=== PATIENT | male | born 1985 | race Caucasian/White ===

== ENCOUNTER → 2021-07-09 | Outpatient (CLI) | payer OTHER ==
--- NOTE | 2021-07-09 17:16 | CONS ---
CONSULTATION DATE OF SERVICE: 07/09/2021 35-year-old gentleman has been evaluated in Sleep Center for possible obstructive sleep apnea-hypopnea syndrome. HISTORY OF PRESENT ILLNESS SLEEP-WAKE EVALUATION: Patient has history of obstructive sleep apnea diagnosed with another institution 3 years ago. At that time, he was started on treatment with CPAP but was not able to use CPAP equipment. Since that time, he increased his weight on 40 pounds. SLEEP SCHEDULE: His sleep schedule at the present time from 10 p.m. to 5:15 am on weekdays and from 11 p.m. until 10 to 11 am on weekends. FALLING ASLEEP: No problems with falling asleep, although he has TV set in bedroom. DURING SLEEP: Usually sleeps on the side position with loud snoring, episodes of stopped breathing during sleep, gasping for air. He wakes up from sleep once with nocturia. DURING THE DAY/SLEEP WAKE EVALUATION: During the day, he may feel sleepiness. [place] Sleepiness Scale increased to 10. He takes one nap at 4 or 5:00 pm. He drinks 3 to 4 caffeinated beverages during the day. No history of hypnagogic hallucinations, sleep paralysis or cataplexy. PAST MEDICAL HISTORY: Positive for asthma, headaches. PAST SURGICAL HISTORY: None. MEDICATIONS: Advair 1 inhalation daily in the morning, albuterol as needed. SOCIAL HISTORY: Negative for smoking, alcohol consumption occasional. FAMILY HISTORY: Positive for sleep apnea by his father. Asthma by his mother, thrombocytopenic purpura by his father. REVIEW OF SYSTEMS: Loud snoring, awakenings from sleep, sleepiness during the day. PHYSICAL EXAMINATION: GENERAL: gentleman without distress. BP 125/78, HR 70, RR 16, height 5 feet 9 inches, weight 331, body mass index 48.8, temperature 98.6, oxygen saturation at room air 98%. Oropharynx: Extremely low position of soft palate, Mallampati 4. NECK is wide 19 inches in circumference. Neck: Supple, no JVD. Thyroid is not palpable. LUNGS: Clear to percussion and to auscultation. Good air exchange. No wheezing or rhonchi. HEART: S1, S2 regular. No murmurs, gallops, or rubs. ABDOMEN: Obese. Soft and nontender. Bowel sounds are present. No organomegaly appreciated. EXTREMITIES: No clubbing or cyanosis. INSPECTOR BALANCE WHEEL MOTION: Awake, alert, and oriented X3. Cranial nerves 2 to 7 intact. There is no fasciculation or atrophy. noted. No focal deficits observed. IMPRESSION: 1. Loud snoring, witnessed episodes of stopped breathing during sleep, awakenings from sleep with gasping for air and choking, history of obstructive sleep apnea in the past family low position of soft palate, Mallampati 4, wide neck, 19 inch in circumference, sleepiness [place] Sleepiness Scale is 10, obstructive sleep apnea- hypopnea syndrome, possibly in severe range. 2. Obesity, body mass index 48.8. 3. Asthma. 4. Episodes of headaches. PLAN: 1. Polysomnography for evaluation of patient's breathing during sleep. 2. CPAP/BiPAP titration if sleep study confirms obstructive sleep apnea-hypopnea syndrome. 3. Preferable position during sleep on the side. 4. No driving if patient feels any sleepiness. 5. I will see patient for follow up visit to explain results of testing and following plan. Thank you very much for referring this patient for consultation. Sincerely, Gurvinder Subramanian MD, PhD, FAASM Diplomat of [place] [employer] Sleep Medicine Board of [place] [employer] Lending Activities Supervisor of [facility] [place] MMODL / IJN: [id number] /
== END | disposition home or self-care (01) ==
LOC: SLEEP 14:31
PROVIDERS: ATTEND Internal Medicine
DX: Z53.9 Procedure and treatment not carried out, unspecified reason (principal)

== ENCOUNTER 2021-07-29 17:10 | Emergency (ER) | payer OTHER ==
[2021-07-29] MEDS ORDERED: ACETAMINOPHEN TAB 500 MG TAB PO STA (21:14)
[2021-07-29] MEDS ORDERED: SODIUM CHLORIDE 0.9% 50 ML IVPB ONE (21:45)
[2021-07-29] MEDS ORDERED: BAMLANIVIMAB (EUA) 700 MG, ETESEVIMAB (EUA) 1,400 MG in SODIUM CHLORIDE 0.9% 100 ML IVPB ONE (21:45)
--- NOTE | 2021-07-29 22:41 | ED ---
General Adult HPI - General Chief complaint: Upper Respiratory Infection Stated complaint: covid+, wants infusion Time Seen by Provider: 07/29/21 20:27 Source: patient, RN notes reviewed Mode of arrival: ambulatory Limitations: no limitations - History of Present Illness Initial comments: 36-year-old male presents to the emergency Department with complaints of fatigue, headache, and body aches. Patient states he had mild symptoms yesterday, but worsened today prompting him to obtain a home Covid test which was positive. Patient states he has not taken any OTC medications. No aggravating or alleviating factors. Patient is requesting the monoclonal antibody infusion. Denies chest pain, shortness of breath, difficulty breathing, abdominal pain, nausea, vomiting, diarrhea, or dysuria. - Related Data Allergies Allergy/AdvReac Type Severity Reaction Status Date / Time No Known Allergies Allergy Verified 07/29/21 18:23 Review of Systems ROS Statement: Those systems with pertinent positive or pertinent negative responses have been documented in the HPI. ROS Other: All systems not noted in ROS Statement are negative. Past Medical History Past Medical History: Asthma History of Any Multi-Drug Resistant Organisms: None Reported Past Surgical History: No Surgical Hx Reported Past Psychological History: No Psychological Hx Reported Smoking Status: Never smoker Past Alcohol Use History: Occasional Past Drug Use History: None Reported General Exam Limitations: no limitations (Well-developed, well-nourished male in no acute distress. Initial temperature 102.0, pulse 1:15, respirations 20, blood pressure 128/71, pulse ox 95% on room air.) General appearance: alert, in no apparent distress ENT exam: Present: normal exam, normal oropharynx, mucous membranes moist Respiratory exam: Present: normal lung sounds bilaterally. Absent: respiratory distress, wheezes, rales, rhonchi, stridor, chest wall tenderness Cardiovascular Exam: Present: regular rate, normal rhythm, normal heart sounds. Absent: systolic murmur, diastolic murmur, rubs, gallop, clicks GI/Abdominal exam: Present: soft, normal bowel sounds. Absent: distended, tenderness, guarding, rebound, rigid Neurological exam: Present: alert, oriented X3, CN II-XII intact Psychiatric exam: Present: normal affect, normal mood Skin exam: Present: warm, dry, intact, normal color. Absent: rash Course Vital Signs 07/29/21 07/29/21 18:23 23:03 Temperature 102.0 F H 99.1 F Pulse Rate 115 H 88 Respiratory 20 18 Rate Blood Pressure 128/71 165/69 O2 Sat by Pulse 95 96 Oximetry Medical Decision Making - Medical Decision Making 36-year-old obese male presents to the emergency department for evaluation. Patient had a positive home Covid test today. Upon exam, patient is well- appearing and in no acute distress. He is febrile, though not tachycardic nor tachypneic. Room air saturation is 96% or greater. Denies chest pain or difficulty breathing. Given Tylenol for fever. Covid test was obtained and is positive. Patient is a candidate for the monoclonal antibody infusion due to his BMI. Risks and benefits were discussed and patient is agreeable. Tolerated infusion with no adverse reaction. Encouraged to treat fever and body aches by alternating Tylenol and Motrin. Instructed to quarantine. Patient will be discharged home to follow-up with his PCP. Return parameters were discussed in detail. Patient verbalizes understanding and agrees with this plan. This patient's care was discussed with my attending . - Lab Data Lab Results 07/29/21 Range/Units 18:29 Coronavirus (PCR) Detected A (Not Detectd) Disposition Clinical Impression: COVID-19 Disposition: HOME SELF-CARE Condition: Stable Instructions (If sedation given, give patient instructions): Coronavirus Disease 2019 (COVID-19) Additional Instructions: Rest. Increase fluids. May alternate Tylenol and Motrin as needed for fever or body aches. Take vitamin C, vitamin D, and zinc. You should quarantine for the next 5 days, or as long as symptoms persist. Return to the emergency department with any new, worsening, or concerning symptoms as discussed. Is patient prescribed a controlled substance at d/c from ED?: No Referrals: Germán العراقي MD [Primary Care Provider] - 1-2 days Time of Disposition: 23:40
[2021-07-29 23:04] VITALS: BP 165/69; PULSE 88; RESP 18; TEMP 99.1
== END 2021-07-29 23:31 | disposition home or self-care (01) ==
LOC: EC 17:10
DX: U07.1 COVID-19 (principal); J45.909 Unspecified asthma, uncomplicated; E66.9 Obesity, unspecified; Z68.42 Body mass index [BMI] 45.0-49.9, adult
CPT/HCPCS: 99284; 87635; J3490

== ENCOUNTER → 2021-10-29 | Outpatient (CLI) | payer OTHER ==
--- NOTE | 2021-10-29 17:06 | SFUN ---
SLEEP CENTER FOLLOW UP NOTE DATE OF SERVICE: 10/29/2021 This 36-year-old gentleman has been followed in Sleep Center for treatment of obstructive sleep apnea-hypopnea syndrome. The patient had a polysomnogram which showed extremely severe obstructive sleep apnea- hypopnea syndrome, and then the patient had a CPAP titration, and his respiration was improved. I discussed the results of his sleep studies with the patient in detail. He received a CPAP unit and started to use it, was able to use it every night, and today is his first follow-up visit while he is on treatment with CPAP. The patient is able to use the equipment every night, and nights he is using it more than 4 hours, average 6 hours 10 minutes, which demonstrates good compliance. Maximal inspiratory pressure 21. Minimal expiratory pressure 12. Pressure support 4. Leak is quite high at 117.5 L/minute, but at the same time apnea-hypopnea index is only 1.3, which is absolutely perfect. [place] Sleepiness Scale today is 4, which is normal. MEDICATIONS: Advair, albuterol. PHYSICAL EXAMINATION: GENERAL: Pleasant patient in no distress. VITAL SIGNS: BP 139/79, HR 93, RR 16, weight 341.8 pounds, temperature 98.2, height 5 feet 9 inches. HEENT: PERRLA, EOMI, evaluation of oropharynx showed tongue protrudes midline. Extremely low position of soft palate; Mallampati IV. NECK: Supple, no JVD. Thyroid is not palpable. LUNGS: Clear to percussion and to auscultation. Good air exchange. No wheezing or rhonchi. HEART: S1, S2 regular. No murmurs, gallops, or rubs. ABDOMEN: Soft and nontender. Bowel sounds are present. No organomegaly appreciated. EXTREMITIES: No clubbing or cyanosis. DREDGE CAPTAIN: Awake, alert, and oriented X3. Cranial nerves 2 to 7 intact. There is no fasciculation or atrophy. noted. No focal deficits observed. IMPRESSION: 1. Extremely severe obstructive sleep apnea-hypopnea syndrome; apnea-hypopnea index 116 with oxygen desaturation extremely low at 34.6% of oxygen. The patient demonstrated great compliance with treatment, benefitting from treatment. Total normalization of respiration. Apnea-hypopnea index reduced to normal at 1.3. [place] Sleepiness Scale reduced from 10 to 4. High leak from the mask. 2. Obesity. 3. Asthma. 4. History of episodes of headaches in the past. No significant headaches after the patient was started on treatment with BiPAP. PLAN: 1. Patient will continue to use PAP equipment every night for the whole night. 2. Sleep hygiene with regular time in bed for at least 7-1/2 to 8 hours. 3. Precautions related to driving. No driving if feeling sleepiness. 4. I will maintain all necessary prescription for PAP supplies including mask, tube, filters. 5. Watching weight. 6. Follow-up visit in 6 months or earlier if patient has any problems. Thank you very much for allowing me to participate in the management of your patient. Sincerely, Gurvinder Subramanian MD, PhD, FAASM Diplomat of [place] [employer] Sleep Medicine Board of [place] [employer] Medicine Loan Review Manager of [facility] [place] AGUILAR / DERREK: [id number] /
== END | disposition home or self-care (01) ==
LOC: SLEEP 15:08
PROVIDERS: ATTEND Internal Medicine
DX: G47.33 Obstructive sleep apnea (adult) (pediatric) (principal); E66.9 Obesity, unspecified; J45.909 Unspecified asthma, uncomplicated

== ENCOUNTER → 2022-07-07 | Outpatient (CLI) | payer OTHER ==
--- NOTE | 2022-07-07 17:08 | P.PN ---
Subjective DATE: 07/07/2022 FOLLOW UP VISIT. Patient with obstructive sleep apnea hypopnea syndrome return to sleep center for follow-up visit. Information from previous visit have been reviewed. Patient is using BPAP equipment every night for the whole night, getting BPAP supplies in time. The patient does not have significant problems with the mask, BPAP unit and humidification. [place] sleepiness scale is 1, which is perfect. I checked information from BPAP unit. BPAP unit pressure maximal inspiratory pressure 21, minimal expiratory pressure 12, pressure-support 4, average pressure 16.3 / 12.3 cm H2O. Usage is 100 % for more then 4 hours, average 6.9 hours per night. Leak is 114 l/m, which is in very high range, possibly because patient has beer and using full face mask. Apnea Hypopnea Index is 0.8, which is perfect. MEDICATIONS:1. Advair twice a day 2. Ventolin as needed During physical exam: GENERAL: A pleasant patient without any distress. VITAL SIGNS: BP 128/83, HR 71, RR 18 , weight 335.2, temperature 98.1, oxygen saturation at room air 97 % . HEENT: PERRLA, EOMI.low position of soft palate, Mallapati 4 . NECK: Supple. No JVD. LUNGS: Clear to percussion and to auscultation. Good air exchange. No wheezing or rhonchi. HEART: S1, S2 regular. ABDOMEN: Soft and nontender. Obese EXTREMITIES: No clubbing or cyanosis. PRINTED CIRCUIT PHOTOGRAPHER: Awake, alert, and oriented x3. No focal deficit. Impressions: 1. Obstructive sleep apnea-hypopnea syndrome. Patient demonstrated great compliance with treatment, benefiting from treatment. 2. Obesity, patient lost 6 pounds since previous visit. 3. Asthma. 4. History of headaches in the past, presently while on BiPAP no headaches. Plan: 1. Continue using PAP equipment every night for the whole night. 2. To change air filter at least 1-2 times per month. 3. PAP unit should stay lower then position of the head. 4. Advised patient to remove all remaining water from humidifier canister daily and make it dry after each usage. Refill canister with fresh distilled water before each usage. 5. Sleep hygiene with regular time in bed for at least 8 hours. 6. Precautions related to driving. No driving if feel any sleepiness. 7. I will maintain prescription for PAP supplies including mask, tube, filters. 8. Follow up visit in 6 months or earlier if patient has any problems. 9. Watching and continue losing weight. Thank you very much for allowing me to participate in the management of your patient. Gurvinder Subramanian MD, PhD, FAASM. Diplomat of [place] [employer], Sleep Medicine Board by [place] [employer] Centrifugal Casting Machine Tender of [facility] [place]
== END ==
LOC: SLEEP 16:29
PROVIDERS: ATTEND Internal Medicine
DX: G47.33 Obstructive sleep apnea (adult) (pediatric) (principal); E66.9 Obesity, unspecified; J45.909 Unspecified asthma, uncomplicated; Z86.69 Personal history of other diseases of the nervous system and sense organs
CPT/HCPCS: 99212

== ENCOUNTER → 2023-01-12 | Outpatient (CLI) | payer OTHER ==
--- NOTE | 2023-01-12 16:55 | P.PN ---
Subjective DATE: 01/12/2023 FOLLOW UP VISIT. Patient with obstructive sleep apnea hypopnea syndrome return to sleep center for follow-up visit. Information from previous visit have been reviewed. Patient is using PAP equipment every night for the whole night, getting PAP supplies in time. The patient does not have significant problems with the mask, BPAP unit and humidification. [place] sleepiness scale is 2. I checked information from BPAP unit. BPAP unit pressure maximal inspiratory pressure 21, minimal expiratory pressure 12, average pressure 16/12 cm H2O. Usage is 100 % for more then 4 hours, average 7.4 hours per night. Leak is increased to 103 l/m, possibly because patient has wang. Apnea Hypopnea Index is 0.8, which is normal. MEDICATIONS:1. Albuterol 2. Advair During physical exam: GENERAL: A pleasant patient without any distress. VITAL SIGNS: BP 126/76, HR 79, RR 18 , weight 330.2, temperature 98.2, oxygen saturation at room air 93 % . HEENT: PERRLA, EOMI.low position of soft palate, Mallapati 4 . NECK: Supple. No JVD. LUNGS: Clear to percussion and to auscultation. Good air exchange. No wheezing or rhonchi. HEART: S1, S2 regular. ABDOMEN: Soft and nontender. Obese EXTREMITIES: No clubbing or cyanosis. IS MANAGER: Awake, alert, and oriented x3. No focal deficit. Impressions: 1. Obstructive sleep apnea-hypopnea syndrome. Patient demonstrated great compliance with treatment, benefiting from treatment. 2. Obesity, patient lost 5 pounds comparing to the previous visit. 3. Asthma. 4. History of headaches in the past, no headaches of the present time after sleep apnea was treated. Plan: 1. Continue using BPAP equipment every night for the whole night. 2. To change air filter at least 1-2 times per month. 3. PAP unit should stay lower then position of the head. 4. Advised patient to remove all remaining water from humidifier canister daily and make it dry after each usage. Refill canister with fresh distilled water before each usage. 5. Sleep hygiene with regular time in bed for at least 8 hours. 6. Precautions related to driving. No driving if feel any sleepiness. 7. I will maintain prescription for PAP supplies including mask, tube, filters. 8. Watching and losing weight. 9. Follow up visit in 6 months or earlier if patient has any problems. Thank you very much for allowing me to participate in the management of your patient. Gurvinder Subramanian MD, PhD, FAASM. Diplomat of [place] Board [employer] Sleep Medicine, Sleep Medicine Board by [place] Board [employer] Medicine Associate Loan Officer of [facility] [place]
== END ==
LOC: 3 N SLEEP 16:11
PROVIDERS: ATTEND Internal Medicine
DX: G47.33 Obstructive sleep apnea (adult) (pediatric) (principal); E66.9 Obesity, unspecified; J45.909 Unspecified asthma, uncomplicated; Z79.51 Long term (current) use of inhaled steroids; Z98.890 Other specified postprocedural states; Z99.89 Dependence on other enabling machines and devices
CPT/HCPCS: 99212

== ENCOUNTER → 2023-07-21 | Outpatient (CLI) | payer OTHER ==
--- NOTE | 2023-07-21 17:10 | P.PN ---
Subjective DATE: 07/21/2023 FOLLOW UP VISIT. Patient with obstructive sleep apnea hypopnea syndrome return to sleep center for follow-up visit. Information from previous visit have been reviewed. Patient is using BPAP equipment every night for the whole night, getting BPAP supplies in time. The patient does not have significant problems with the mask, BPAP unit and humidification. [place] sleepiness scale is 2, which is perfect. I checked information from PAP unit. BPAP unit pressure maximal inspiratory pressure 21, minimal expiratory pressure 12, pressure-support 4 cm H2O. Usage is 100 % for more then 4 hours, average 7 hours per night. Leak is significantly increased to 97.7 l/m, which is in acceptable range. Apnea Hypopnea Index is 1.4, which is normal. MEDICATIONS:1. Albuterol inhaler 2. Advair inhaler During physical exam: GENERAL: A pleasant patient without any distress. VITAL SIGNS: BP 130/62, HR 71, RR 12 , weight 340.8, temperature 98.4, oxygen saturation at room air 98 % . HEENT: PERRLA, EOMI.low position of soft palate, Mallapati 4 . NECK: Supple. No JVD. LUNGS: Clear to percussion and to auscultation. Good air exchange. No wheezing or rhonchi. HEART: S1, S2 regular. ABDOMEN: Soft and nontender. Obese EXTREMITIES: No clubbing or cyanosis. FINISHER WALLBOARD AND PLASTERBOARD: Awake, alert, and oriented x3. No focal deficit. Impressions: 1. Obstructive sleep apnea-hypopnea syndrome. Patient demonstrated great compliance with treatment, benefiting from treatment. 2. Obesity, BMI 50.3, patient increased his weight on 10 pounds comparing with previous visit. 3. Asthma. 4. History of headaches in the past. Plan: 1. Continue using PAP equipment every night for the whole night. 2. To change air filter at least 1-2 times per month. 3. PAP unit should stay lower then position of the head. 4. Advised patient to remove all remaining water from humidifier canister daily and make it dry after each usage. Refill canister with fresh distilled water before each usage. 5. Sleep hygiene with regular time in bed for at least 8 hours. 6. Precautions related to driving. No driving if feel any sleepiness. 7. I will maintain prescription for PAP supplies including mask, tube, filters. 8. Follow up visit in 6 months or earlier if patient has any problems. 9. Watching and losing weight. Thank you very much for allowing me to participate in the management of your patient. Gurvinder Subramanian MD, PhD, FAASM. Diplomat of [place] Board of Sleep Medicine, Sleep Medicine Board by [place] Board of Internal Medicine Clothespin Drier Operator of [facility] [place]
== END ==
LOC: 3 N SLEEP 16:10
PROVIDERS: ATTEND Internal Medicine
DX: G47.33 Obstructive sleep apnea (adult) (pediatric) (principal); E66.9 Obesity, unspecified; J45.909 Unspecified asthma, uncomplicated; Z86.69 Personal history of other diseases of the nervous system and sense organs; Z68.43 Body mass index [BMI] 50.0-59.9, adult; Z99.89 Dependence on other enabling machines and devices
CPT/HCPCS: 99212

== ENCOUNTER → 2024-07-13 | Outpatient (CLI) | payer MEDICAID ==
[2024-07-13 15:19] LABS: BUN/Creat Ratio 15.92 Ratio (12.00-20.00); Blood Urea Nitrogen 20.7 mg/dL (9.0-27.0); Calcium 9.8 mg/dL (8.7-10.3); Carbon Dioxide 24.5 mmol/L (21.6-31.8); Chloride 106 mmol/L (96-109); Glucose 84 mg/dL (70-110); Potassium 4.9 mmol/L (3.5-5.5); Sodium 141 mmol/L (135-145)
[2024-07-13 18:30] LABS: Basophils # (A) 0.04 X 10*3/uL (0.00-0.10); Basophils % (A) 0.5 %; Eosinophils # (A) 0.61 X 10*3/uL (0.04-0.35); Eosinophils % (A) 7.8 %; HCT 45.4 % (39.6-50.0); HGB 14.5 g/dL (13.0-17.0); Lymphocytes # (A) 1.65 X 10*3/uL (0.90-5.00); Lymphocytes % (A) 21.2 %; MCH 28.9 pg (27.0-32.0); MCHC 31.9 g/dL (32.0-37.0); MCV 90.6 FL (80.0-97.0); Mean Platelet Volume 12.8 FL (9.5-12.2); Monocytes # (A) 0.73 X 10*3/uL (0.20-1.00); Monocytes % (A) 9.4 %; NRBC Per 100 WBC 0 X 10*3/uL (0.00-0.01); Neutrophils # (A) 4.75 X 10*3/uL (1.80-7.70); Neutrophils % (A) 60.8 %; Platelet Count 217 X 10*3/uL (140-440); RBC 5.01 X 10*6/uL (4.40-5.60); RDW 13.1 % (11.5-14.5)
== END | disposition home or self-care (01) ==
LOC: LABWHC1 11:05
PROVIDERS: ATTEND Family Medicine
DX: E66.01 Morbid (severe) obesity due to excess calories (principal); K21.9 Gastro-esophageal reflux disease without esophagitis; K92.1 Melena; R79.89 Other specified abnormal findings of blood chemistry
CPT/HCPCS: 36415; 80048; 85025

== ENCOUNTER → 2024-08-16 | Outpatient (CLI) | payer MEDICAID ==
[2024-08-16 15:37] LABS: Basophils # (A) 0.03 X 10*3/uL (0.00-0.10); Basophils % (A) 0.4 %; Eosinophils % (A) 5.9 %; HCT 47.1 % (39.6-50.0); Lymphocytes # (A) 2.05 X 10*3/uL (0.90-5.00); MCH 28.4 pg (27.0-32.0); MCHC 31.8 g/dL (32.0-37.0); Mean Platelet Volume 12.3 FL (9.5-12.2); Monocytes # (A) 0.64 X 10*3/uL (0.20-1.00); Monocytes % (A) 9.4 %; NRBC Per 100 WBC 0 X 10*3/uL (0.00-0.01); Neutrophils % (A) 54.2 %; Platelet Count 234 X 10*3/uL (140-440); RBC 5.29 X 10*6/uL (4.40-5.60); RDW 12.6 % (11.5-14.5); WBC 6.83 X 10*3/uL (4.50-10.00)
== END | disposition home or self-care (01) ==
LOC: LABWHC1 09:53
PROVIDERS: ATTEND Family Medicine
DX: I10 Essential (primary) hypertension (principal); E66.01 Morbid (severe) obesity due to excess calories; J45.20 Mild intermittent asthma, uncomplicated; K92.1 Melena; Z68.42 Body mass index [BMI] 45.0-49.9, adult; K21.9 Gastro-esophageal reflux disease without esophagitis; R79.89 Other specified abnormal findings of blood chemistry
CPT/HCPCS: 36415; 82040; 84270; 84402; 84403; 85025

== ENCOUNTER → 2024-08-30 | Outpatient (CLI) | payer MEDICAID ==
--- NOTE | 2024-08-30 16:48 | NM ---
EXAMINATION TYPE: NM hepatobiliary w CCK DATE OF EXAM: 08/30/2024 COMPARISON: NONE CLINICAL INDICATION: Male, 39 years old with history of R10.13 Epigastric pain; TECHNIQUE: After the intravenous administration of 5.0 mCi Tc 99m Mebrofenin hepatobiliary scintigrap hy is performed. Immediate images post injection. FINDINGS: There is satisfactory initial accumulation of tracer by the liver. The gallbladder is visualized wit hin 12 minutes. The small bowel activity is noted within 6 minutes. At one hour CCK was administere d, patient was injected with 3.2 mcg of Kinevac, and gallbladder ejection fraction is calculated at 6 7 %, in the normal range. IMPRESSION: No scintigraphic evidence for acute/chronic cholecystitis or biliary dyskinesia. [facility] Doe, , 08/30/2024 4:45 PM
== END | disposition home or self-care (01) ==
LOC: RADNMMAIN 13:09
PROVIDERS: ATTEND Surgery
DX: R10.13 Epigastric pain (principal)
CPT/HCPCS: 78227; A9537; J2805

== ENCOUNTER → 2024-09-27 | Outpatient (CLI) | payer MEDICAID ==
--- NOTE | 2024-09-27 10:26 | FL ---
EXAMINATION TYPE: FL UGI w esophagus DATE OF EXAM: 09/27/2024 9:13 AM COMPARISON: None CLINICAL INDICATION:Male, 39 years old with history of GERD; TECHNIQUE: The procedure was explained and patient history elicited. All patient questions were ans wered prior to start of procedure. A office services assistant radiograph of the abdomen was also reviewed. Multiple flu oroscopic spot images of the esophagus, stomach and duodenum were obtained following ingestion of liq uid barium and EZ-gas crystals. Fluoroscopic time:1 minute 3 seconds Radiographs taken: 134 DAP: Not reported [id number] FINDINGS: Upper GI examination: The office services assistant abdominal radiograph demonstrates a normal bowel gas pattern without dilated loops of small or large bowel. There is no evidence for organomegaly or pneumoperitoneum. No abnormal calcificat ions. The visualized osseous structures are intact. The esophagus demonstrates normal primary and secondary peristalsis. The esophageal mucosa is smooth without evidence of focal stricture, ulceration, or abnormal outpouching. No gastroesophageal reflu x disease was identified. The stomach and duodenum demonstrate a normal course and contour. There is no evidence of focal vinayak davis or duodenal ulceration, stricture, or abnormal outpouching IMPRESSION: Normal upper gastrointestinal examination. [facility], , 09/27/2024 10:24 AM
== END | disposition home or self-care (01) ==
LOC: RADFLMAIN 08:27
PROVIDERS: ATTEND Surgery
DX: K21.00 Gastro-esophageal reflux disease with esophagitis, without bleeding (principal)
CPT/HCPCS: 74240

== ENCOUNTER → 2024-12-13 | Outpatient (CLI) | payer MEDICAID ==
[2024-12-13 15:53] LABS: Prostate Specific Antigen 0.54 ng/mL (0.000-2.500)
== END | disposition home or self-care (01) ==
LOC: LABWHC1 08:29
PROVIDERS: ATTEND Family Medicine
DX: R79.89 Other specified abnormal findings of blood chemistry (principal)
CPT/HCPCS: 36415; 82040; 84153; 84270; 84403